=== PATIENT | male | born 1985 | race Caucasian/White ===

== ENCOUNTER 2017-10-14 21:01 | Emergency (ER) | payer MEDICAID, SELFPAY ==
[2017-10-14 21:03] VITALS: BP 147/81; PULSE 101; RESP 16; TEMP 36.8; O2SAT 98; BMI 32.5
--- NOTE | 2017-10-14 21:46 | ED.RN ---
NO OLD EKGS IN MUSE.
[2017-10-14 21:49] VITALS: PULSE 102; RESP 16; O2SAT 98
--- NOTE | 2017-10-14 22:25 | RAD_ITS ---
STUDY: X-RAY CHEST REASON FOR EXAM: Male, 32 years old. Chest pain TECHNIQUE: Single AP portable view of the chest. COMPARISON: None. FINDINGS: The lungs are clear and expanded. There is no demonstrated pleural abnormality. Normal size heart. Normal mediastinum and saba. Normal visualized pulmonary arteries. Normal visualized aortic arch and descending thoracic aorta. Normal visualized thoracic spine. Normal visualized ribs, clavicles, and shoulders. There is no demonstrated abnormality of the visualized soft tissue structures of the upper abdomen. RAD/Chest 1 View (Portable) IMPRESSION: Normal x-ray examination of the chest. Electronically Signed: Luis Hamilton MD at 23:11 EDT , Service support ,
--- NOTE | 2017-10-14 22:25 | EKG12_ITS ---
Test Reason : CP Blood Pressure : / mmHG Vent. Rate : 093 BPM Atrial Rate : 093 BPM P-R Int : 172 ms QRS Dur : 092 ms QT Int : 380 ms P-R-T Axes : 022 024 043 degrees QTc Int : 472 ms Normal sinus rhythm Normal ECG Confirmed by SAKINA CORTEZ MD ([id number]), image editor JACIEL MARTIN ([id number] on 10/16/2017 2:17:06 PM Referred By: KYLIE Confirmed By:SAKINA CORTEZ MD
[2017-10-14] MEDS: 0.9% Normal Saline 1,000 ML 1000 ML IV (22:38)
[2017-10-14 22:49] LABS: Absolute Lymphocyte Count 2.19 X10^3/ul (0.83-4.51); Absolute Neutrophil Count 3.6 X10^3/uL (2.0-7.7); Basophil# 0.03 X10^3/uL; Basophil% 0.4 % (0-1); Eosinophil# 0.07 X10^3/uL; Hematocrit 39.6 % (40-54); Hemoglobin 13.8 g/dl (13.0-16.5); Lymphocyte # 2.19 X10^3/ul (4.0); Lymphocyte % 32.2 % (19-41); Mean Corp Hgb Conc 34.8 g/gl (32-36); Mean Corpuscular Hgb 32.3 pg (27.0-32.0); Mean Corpuscular Volume 92.7 fL (80-94); Mean Platelet Vol. 9.6 fl (6.2-12.0); Monocyte# 0.88 X10^3/uL; Monocyte% 12.9 % (0-10); Neutrophil # 3.62 X10^3/uL (2.7-7.7); Neutrophil % 53.4 % (47-70); Platelet Count 184 K/mm3 (150-450); RBC Distribution Width CV 20.2 % (11.6-14.6); RBC Distribution Width SD 66.7 fl (35.1-43.9); Red Blood Count 4.27 M/mm3 (4.6-6.2); White Blood Count 6.8 K/mm3 (4.4-11.0)
[2017-10-14 22:51] LABS: Differential Indicated SCAN CRITERIA MET; POSITIVE COUNT NO; POSITIVE DIFFERENTIAL NO; POSITIVE MORPHOLOGY YES
[2017-10-14] MEDS: Ondansetron 4 MG/2 ML Vial IV (22:56)
[2017-10-14] MEDS: Ketorolac 30 MG/ML Syringe IV (22:56)
[2017-10-14 23:00] LABS: Red Blood Cells-Urine 0 SEEN /hpf (0-5); Squamous Epithelial Cells - UA 0 SEEN /hpf (0-5); White Blood Cells 0 SEEN /hpf (0-5)
[2017-10-14 23:03] LABS: Color, Urine Amber (Yellow); Glucose, Dipstick Normal (Normal); Ketone-Dipstick 15 mg/dl (Negative); Leukocyte Esterase-Dipstick 25 /ul (Negative); Nitrite-Dipstick Positive (Negative); Occult Blood-Urine 10 /ul (Negative); Protein-Dipstick 30 mg/dl (Negative); Specific Gravity, Urine 1.015 (1.002-1.030); Urine Clarity Sl. Cloudy (Clear); Urine Urobilinogen 12 mg/dl (Normal); Urine pH 6.5 (5.0 - 8.0)
[2017-10-14 23:05] LABS: Urine Bilirubin Dipstick 3 mg/dL (Negative)
[2017-10-14 23:06] LABS: Differential Comment SCANNED
[2017-10-14 23:07] LABS: AST(SGOT) 135 U/L (15-37); Alanine Aminotransfer ALT/SGPT 37 U/L (16-61); Alkaline Phosphatase 169 U/L (45-117); Anion Gap 9 (5-15); BUN 4 mg/dL (7-18); BUN/Creat Ratio 4.1 RATIO (10-20); Bilirubin, Direct 0.73 mg/dL (0.00-0.30); Calcium,Total 8.2 mg/dL (8.5-10.1); Chloride 101 mmol/L (98-107); Creatinine, Serum 0.96 mg/dL (0.70-1.30); EST Glomerular Filtration Rate 97 mL/min (>60); Est Glom Filt Rate - Afr Amer 117 mL/min (>60); Estimated Creatinine Clearance 130.82 ml/min; Globulin 5.4 g/dL (2.2-4.2); Glucose 84 mg/dL (74-106); Lipase 93 U/L (73-393); Potassium 3.9 mmol/L (3.5-5.1); Protein, Total 8.4 g/dL (6.4-8.2); Sodium Level 134 mmol/L (136-145)
[2017-10-14 23:09] LABS: International Normalized Ratio 1.7; Prothrombin Time (Protime)PT. 19.6 SECONDS (11.7-14.9)
[2017-10-14 23:09] LABS: Bacteria RARE /hpf (None Seen); Mucous, Urine 2+ /hpf (<or=2+)
--- NOTE | 2017-10-14 23:28 | ED.VISSUMM ---
- ER Visit Summary Date of Service: 10/14/17 Chief Complaint: Abdominal pain History of Present Illness: The patient is a [address] 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 He reports he has abdominal pain that began 4 years ago but worse in 6 weeks ago. It is a cramping diffuse pain with sharp suprapubic pain. It is 9 out of 10 at worst 9 out of 10 currently. Is worsened by food. It is unchanged with movement. Is relieved by nothing. Reports he has been nausea and vomited twice today. States he has also been vomiting daily for the past 4 years. No blood in his emesis. Reports that he has had small volumes of mucousy diarrhea 4 times today. No blood in his stools or black tarry stools. He reports that his urine has been orange for the past 3-4 weeks. He denies any dysuria or frequency. Physical Examination: Vitals: Stable. Afebrile. General: Well-nourished and well-developed. Head: Normocephalic atraumatic. Neck: Supple, no lymphadenopathy. No JVD. Nontender. Cardiovascular: Regular rate and rhythm. No murmurs. Respiratory: No respiratory distress. Clear to auscultation bilaterally. Abdominal: Soft, mild diffuse tenderness palpation that is worst in the epigastric region, nondistended, normal bowel sounds. No guarding, rebound, or peritoneal signs. Back: Nontender. Extremities: Nontender, no edema. Skin: Normal color, no rash. Neurologic: Alert and oriented ?3. Cranial nerves II through XII are intact. Normal strength and sensation. Psych: Normal affect. Test Results: CBC is marked for hematocrit of 39.6 and monocytes of 13. Chem-7 is more for sodium 134 and calcium of 8.2. LFTs marked for total bili of 2.9, direct bili 0.73, alk phos 169, ALT of 37, AST 135. Lipase is 93. INR is 1.7. UA shows no whites or reds on micro. Troponin is negative. EKG is sinus at [address] changes. Chest x-ray is normal. Patient has a right upper quadrant ultrasound that was obtained October 13 with him. This was read as moderate hepatomegaly and splenomegaly. Moderate to severe coarsening and alteration of the hepatic echotexture consistent with a history of cirrhosis. Dilated main portal vein and recanalized umbilical vein consistent with portal hypertension. Gallbladder wall thickening and sludge without any secondary signs of cholecystitis. No ascites. This was not repeated. Emergency Department Course and Treatment: Patient had an IV placed. He is given dose of Toradol and Zofran IV. He is resting comfortably. Treatment Plan: I had a prolonged discussion with him about the cirrhosis he has and his history of alcohol use. He reports that he has not had a drink for 4 days and tapered down off of alcohol prior to that. He states that he has had alcohol withdrawal in the past and does not feel that way at all. I suggested that he follow-up with his supervisor liquid yeast as soon as possible for further evaluation. He already has Bentyl, Phenergan, and Zofran at home and does not want anything more for pain or nausea. Return to the emergency department for any worsening symptoms. Disposition: To home in improved and stable condition. Impression: 1. Cirrhosis. This note was generated with [employer] dictation software. It may contain incorrect words, spelling, and punctuation that were not noted in review of the chart prior to signing ED Disposition - Plan for ED Patient: Disposition: Home or Assisted Living Chief Complaint: Abd Pain Instructions: ED Cirrhosis Liver Referrals: [facility] Doctor,Out of [Primary Care Provider] - Additional Instructions: Follow-up with your supervisor liquid yeast as soon as possible.
[2017-10-14 23:55] VITALS: BP 129/83; PULSE 90; PULSE 93; RESP 14; RESP 18; O2SAT 95; O2SAT 96
== END 2017-10-15 00:09 | disposition home or self-care (01) ==
LOC: ED 23:13
PROVIDERS: Emergency Provider Emergency Medicine
DX: K74.60 Unspecified cirrhosis of liver (principal); I10 Essential (primary) hypertension; I34.1 Nonrheumatic mitral (valve) prolapse; E78.00 Pure hypercholesterolemia, unspecified; F31.9 Bipolar disorder, unspecified; F12.90 Cannabis use, unspecified, uncomplicated; F10.10 Alcohol abuse, uncomplicated; Y90.9 Presence of alcohol in blood, level not specified; Z79.899 Other long term (current) drug therapy; Z72.0 Tobacco use
CPT/HCPCS: 71045; 80048; 80076; 81001; 83690; 84484; 85025; 85610; 93005; 96361; 96374; 96375; 99284; J7030; A4216; J2405